=== PATIENT | male | born 1975 | race Caucasian/White ===

== ENCOUNTER 2021-11-21 09:55 | Emergency (ER) | payer OTHER ==
[2021-11-21 10:04] VITALS: BP 136/83; PULSE 78; TEMP 97.7; BMI 31.0
[2021-11-21] MEDS ORDERED: LIDOCAINE 5% TOPICAL PATCH TP ONE (10:08)
[2021-11-21] MEDS ORDERED: ACETAMINOPHEN 500 MG TABLET (FP) PO ONE ×2 (10:08→10:29)
[2021-11-21] MEDS ORDERED: ACETAMINOPHEN 325 MG TABLET (FP) ONE (10:37)
[2021-11-21] MEDS ORDERED: DIPHTH,PERTUSS(ACELL),TET 0.5 ML DISP.SYRIN IM ONE ×2 (11:11→11:14)
[2021-11-21] MEDS ORDERED: LIDOCAINE HCL 1%, 10 MG/ML (50 mL VIAL) SQ ONE (11:27)
[2021-11-21] MEDS ORDERED: LIDOCAINE HCL 1%, 10 MG/ML (20ML VIAL) ONE (11:46)
[2021-11-21] MEDS ORDERED: ceFAZolin 2 GRAM PREMIX BAG IVPB ONE (12:25)
[2021-11-21] MEDS ORDERED: CEFAZOLIN 2 GM in DEXTROSE 5%-WATER - 100 ML IVPB ONE (13:00)
[2021-11-21] MEDS ORDERED: ceFAZolin SODIUM 1 GM VIAL ONE (13:01)
[2021-11-21] MEDS ORDERED: LIDOCAINE PATCH REMOVAL MC SCH (22:00)
== END 2021-11-21 13:44 | disposition home or self-care (01) ==
LOC: FER 09:55
PROC: 0RSWXZZ Reposition Right Finger Phalangeal Joint, External Approach (ICD-10-PCS; principal; 2021-11-21)
PROC: 0HQFXZZ Repair Right Hand Skin, External Approach (ICD-10-PCS; 2021-11-21)
PROC: 3E033GC Introduction of Other Therapeutic Substance into Peripheral Vein, Percutaneous Approach (ICD-10-PCS; 2021-11-21)
PROC: 3E0234Z Introduction of Serum, Toxoid and Vaccine into Muscle, Percutaneous Approach (ICD-10-PCS; 2021-11-21)
DX: S63.276A Dislocation of unspecified interphalangeal joint of right little finger, initial encounter (principal); W01.0XXA Fall on same level from slipping, tripping and stumbling without subsequent striking against object, initial encounter
CPT/HCPCS: 73130-TC-RT-FY; 90715; 99284-25